=== PATIENT | male | born 1940 | race Caucasian/White ===

== ENCOUNTER 2017-01-02 10:05 | Day surgery (SDC) | payer MEDICARE, OTHER ==
[2017-01-01 14:57] VITALS: BMI 29.2
[2017-01-02 10:38] LABS: Hematocrit 44.1 % (42.0-52.0)
[2017-01-02 10:43] LABS: Anion Gap 12 mmol/L (10-20); BUN (Urea Nitrogen) 17 mg/dL (8.4-25.7); Calc. Creatinine Clearance 91 mL/min (70-130); Calcium 9.5 mg/dL (7.8-10.44); Carbon Dioxide 26 mmol/L (23-31); Chloride 106 mmol/L (98-107); Estimated GFR-MDRD 80
[2017-01-02] MEDS ORDERED: Oxymetazoline HCl 0.05% ( 15 ML ) ONE ×2 (10:49→11:56)
[2017-01-02] MEDS ORDERED: Lidocaine 2% w/Epinephrine 1:200K 20 ML VIAL ONE (11:56)
--- NOTE | 2017-01-02 12:25 | EKG ---
Test Reason : PREOP Blood Pressure : / mmHG Vent. Rate : 060 BPM Atrial Rate : 060 BPM P-R Int : 200 ms QRS Dur : 100 ms QT Int : 442 ms P-R-T Axes : 047 -32 027 degrees QTc Int : 442 ms Normal sinus rhythm Left axis deviation minimal ns stt changes Abnormal ECG No previous ECGs available Confirmed by DR. Gypsy DAVIES ([id number]) on 01/02/2017 12:25:20 PM Referred By: JERRY Confirmed By:DR. Gypsy DAVIES
[2017-01-02] MEDS ORDERED: Fentanyl 100 MCG/2 ML VIAL ONE ×2 (12:34→14:39)
[2017-01-02] MEDS ORDERED: Lidocaine 2% PF 10 ML AMP (For Epidural Use) ONE (13:08)
[2017-01-02] MEDS ORDERED: Ondansetron HCl/PF 4 MG/2 ML Vial ONE (13:08)
[2017-01-02] MEDS ORDERED: ePHEDrine/0.9% NaCl/PF SYRINGE 50 mg/10 ml ONE (13:08)
[2017-01-02] MEDS ORDERED: Propofol 200 MG/20 ML VIAL ONE (13:08)
[2017-01-02] MEDS ORDERED: Bacitracin Zinc Ointment 30 gm TUBE ONE (13:43)
[2017-01-02] MEDS ORDERED: traMADol HCl 50 MG TAB ONE ×2 (15:54→15:57)
--- NOTE | 2017-01-21 11:34 | OP ---
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 POSTOPERATIVE DIAGNOSES: Severe obstructive rhinophyma and also obstructive inferior turbinate hyper trophy. PROCEDURE PERFORMED: 1. Excisional/surgical planning of skin of nose for rhinophyma 30005. 2. Submucosal resection of the inferior turbinates. PROCEDURE IN DETAIL: The patient was identified and brought to the operating room, and placed on the operating room table in the supine position. General endotracheal anesthesia was obtained. The pat ient was positioned for surgery. OP, inferior turbinates, and the nasal tip were infiltrated with 0. 25% Marcaine with 1:10,000 epinephrine. We then waited an appropriate amount of time for nasal endos copy, used the coblation 1 and underwent multiple passes of the inferior turbinates in the submucosal fashion and were able to remove some of the submucosal vascular tissue bilaterally. We then turned our attention to the nasal tip and nasal alar region. The patient had extensive rhinophyma with exop hytic hypertrophic sebaceous glands extending from the nasal alar region itself. CO2 laser was used with the handpiece and under using systematic technique, this hypertrophic sebaceous tissue was laser obliterated down to the level where there was no longer any crackling sebum identified. Care was ma de not to go down into the subcutaneous tissue. This procedure took approximately 45 minutes and was done sequentially involving deeper and deeper plane while we scoping the nasal tip and which created a good functional and caused anesthetic result. At the completion of the procedure, Xeroform satura meli and bacitracin ointment was placed on the raw nasal tip followed by the sterile bandage. The pat ient was awakened, extubated, and discharged home in stable condition.
== END 2017-01-02 17:09 | disposition home or self-care (01) ==
LOC: SDC 10:05
PROVIDERS: ATTEND Specialist
PROC: 0HB1XZZ Excision of Face Skin, External Approach (ICD-10-PCS; principal; 2017-01-02)
PROC: 09TL8ZZ Resection of Nasal Turbinate, Via Natural or Artificial Opening Endoscopic (ICD-10-PCS; 2017-01-02)
DX: J34.89 Other specified disorders of nose and nasal sinuses (principal); L71.1 Rhinophyma; I10 Essential (primary) hypertension; E78.5 Hyperlipidemia, unspecified; J44.9 Chronic obstructive pulmonary disease, unspecified; M19.90 Unspecified osteoarthritis, unspecified site; N40.0 Benign prostatic hyperplasia without lower urinary tract symptoms; Z79.84 Long term (current) use of oral hypoglycemic drugs; Z79.82 Long term (current) use of aspirin; Z79.51 Long term (current) use of inhaled steroids; Z79.899 Other long term (current) drug therapy; Z88.6 Allergy status to analgesic agent; Z88.1 Allergy status to other antibiotic agents; Z88.8 Allergy status to other drugs, medicaments and biological substances; Z91.038 Other insect allergy status; Z96.642 Presence of left artificial hip joint; Z96.653 Presence of artificial knee joint, bilateral; Z98.890 Other specified postprocedural states; Z95.818 Presence of other cardiac implants and grafts; Z87.01 Personal history of pneumonia (recurrent); Z87.891 Personal history of nicotine dependence; Z87.442 Personal history of urinary calculi
CPT/HCPCS: 36415; 80048; 85014; 85018; 93005; 93010; 96374; J2001; J2405; J2704; J3010